=== PATIENT | male | born 1960 | race Caucasian/White ===

== ENCOUNTER 2021-02-21 09:18 | Emergency (ER) | payer MEDICAID ==
[2021-02-21] MEDS ORDERED: Albuterol/Ipratropium 3.0-0.5 MG/3 ML Neb Soln NEB ONE (09:51)
== END 2021-02-21 10:53 | disposition home or self-care (01) ==
LOC: JP.ED 09:18
DX: J20.8 Acute bronchitis due to other specified organisms (principal); Z72.0 Tobacco use
CPT/HCPCS: 71046; 71046-26; 94640; 99284; 99285-25; J7620-GY